=== PATIENT | female | born 1985 | race Caucasian/White ===

== ENCOUNTER 2017-02-11 17:19 | Emergency (ER) | payer OTHER ==
[~2017-02-11] VITALS: Ht 172.7 cm; Wt 96.8 kg
[~2017-02-11 17:19] MED LIST: ATIVAN0.5 MG PO; CIPRO500 MG OR; DEPO-PROVER150 MG/ML IM; FLEXERIL PO; LEVAQUIN500 MG OR; NAPROSYN500 MG OR; PRENATA4 OR; PROVENTIL HFA IN; TRAMADOL HCL50 MG PO; ULTRAM50 M1 PO; no home meds
[2017-02-11] MEDS ORDERED: PERCOCET 5/325M1 TAB PO (19:23)
[2017-02-11 19:33] VITALS: BP 126/80
== END 2017-02-11 19:33 | disposition home or self-care (01) | DRG 605 ==
LOC: ED 17:19
DX: S30.0XXA Contusion of lower back and pelvis, initial encounter (principal); S63.91XA Sprain of unspecified part of right wrist and hand, initial encounter; S39.012A Strain of muscle, fascia and tendon of lower back, initial encounter; W18.39XA Other fall on same level, initial encounter; Y92.003 Bedroom of unspecified non-institutional (private) residence as the place of occurrence of the external cause

== ENCOUNTER 2017-03-20 11:49 | Emergency (ER) | payer OTHER ==
[~2017-03-20] VITALS: Ht 172.7 cm; Wt 100.0 kg
[~2017-03-20 11:49] MED LIST changes: +PERCOCET 5/325M1 TAB PO
[2017-03-20 12:29] LABS: HEMATOCRIT 40.2 % (37.0-47.0); HEMOGLOBIN 13.3 g/dl (12.0-16.0); IMMATURE GRANULOCYTES 0.3 % (0.0-1.0); MEAN CELL VOLUME 80.7 fL CALC (80.0-100.0); MEAN CORPUSCULAR HGB 26.7 pG CALC (26.0-32.0); MEAN CORPUSCULAR HGB CONC 33.1 g/L CALC (32.0-36.0); NEUT# 5.4 thou/uL (2.00-7.15); RED BLOOD COUNT 4.98 mill/uL (4.20-5.60); RED CELL DISTRI WIDTH 16.4 % (11.5-15.5)
[2017-03-20 12:30] LABS: URINE BILIRUBIN - DIPSTICK NEGATIVE (NEGATIVE); URINE BLOOD DIPSTICK NEGATIVE (NEGATIVE); URINE CLARITY CLEAR; URINE COLOR YELLOW; URINE GLUCOSE - DIPSTICK NEGATIVE (NEGATIVE); URINE KETONE NEGATIVE (NEGATIVE); URINE LEUK ESTERASE NEGATIVE (NEGATIVE); URINE NITRITE - DIPSTICK NEGATIVE (Negative); URINE PH 6.5 (4.5-8.0); URINE PROTEIN - DIPSTICK NEGATIVE (NEG-TRACE); URINE SPECIFIC GRAVITY 1.015; URINE UROBILINOGEN - DIPSTICK 0.2 E.U./dL (0.2)
[2017-03-20 12:42] LABS: ALBUMIN 4.4 g/dL (3.2-5.0); ALKALINE PHOSPHATASE 89 u/l (38-126); ANION GAP 16 (6-22 (CALC)); BILIRUBIN, TOTAL 0.5 mg/dL (0.0-1.4); BUN 10 mg/dL (7-17); BUN/CREATININE RATIO 16 (12-20 (CALC)); CALCIUM 9.5 mg/dL (8.4-10.2); CARBON DIOXIDE 24 mmol/l (22-30); CHLORIDE 106 mmol/l (95-108); CREATININE 0.6 mg/dL (0.5-1.0); GFR > 60 ML/MIN (>=60 (CALC)); GFR FOR AFR.AMER. > 60 ML/MIN (>=60 (CALC)); GLUCOSE 114 mg/dL (65-105); SGOT/AST 23 u/l (14-36); SGPT/ALT 36 u/l (9-52); SODIUM 142 mmol/l (137-146); TOTAL PROTEIN 7.5 g/dL (6.3-8.2)
[2017-03-20 12:59] LABS: BETA-HCG, QUANT(RESULT NUMBER) <2 mIU/mL
[2017-03-20 15:03] VITALS: BP 124/83
== END 2017-03-20 15:03 | disposition home or self-care (01) | DRG 392 ==
LOC: ED 11:49
PROVIDERS: Emergency Medicine
DX: R10.9 Unspecified abdominal pain (principal)

== ENCOUNTER 2018-08-07 18:55 | Emergency (ER) | payer SELFPAY ==
[~2018-08-07] VITALS: Ht 172.7 cm; Wt 102.0 kg
[2018-08-07 20:00] VITALS: BP 148/96
== END 2018-08-07 20:00 | disposition home or self-care (01) | DRG 556 ==
LOC: ED 18:55
DX: M25.561 Pain in right knee (principal); F17.210 Nicotine dependence, cigarettes, uncomplicated

== ENCOUNTER 2019-02-23 08:29 | Emergency (ER) | payer OTHER ==
[~2019-02-23] VITALS: Ht 172.7 cm; Wt 105.0 kg
[2019-02-23 09:19] LABS: HEMATOCRIT 41.5 % (37.0-47.0); HEMOGLOBIN 13.7 g/dl (12.0-16.0); IMMATURE GRANULOCYTES 0.5 % (0.0-5.0); MEAN CORPUSCULAR HGB 28.4 pG CALC (26.0-32.0); NEUT# 5.33 thou/uL (2.00-7.15); RED BLOOD COUNT 4.82 mill/uL (4.20-5.60); RED CELL DISTRI WIDTH 13.3 % (11.5-15.5)
[2019-02-23 09:21] LABS: URINE BILIRUBIN - DIPSTICK NEGATIVE (NEGATIVE); URINE BLOOD DIPSTICK NEGATIVE (NEGATIVE); URINE COLOR YELLOW; URINE GLUCOSE - DIPSTICK NEGATIVE (NEGATIVE); URINE KETONE NEGATIVE (NEGATIVE); URINE LEUK ESTERASE NEGATIVE (NEGATIVE); URINE PROTEIN - DIPSTICK NEGATIVE (NEG-TRACE); URINE SPECIFIC GRAVITY 1.015; URINE UROBILINOGEN - DIPSTICK 0.2 E.U./dL (0.2)
[2019-02-23 09:21] LABS: MEAN CELL VOLUME 86.1 fL CALC (80.0-100.0)
[2019-02-23 09:22] LABS: URINE NITRITE - DIPSTICK POSITIVE (Negative)
[2019-02-23 09:31] LABS: URINE BACTERIA MODERATE hpf; URINE SQUAMOUS EPITHELIAL CELL MANY EPI/hpf (0-FEW); URINE WBC 0-2 WBC/hpf (0-5)
[2019-02-23 09:47] LABS: ALBUMIN 3.9 g/dL (3.2-5.0); ALKALINE PHOSPHATASE 92 u/l (38-126); ANION GAP 13 (6-22 (CALC)); BILIRUBIN, TOTAL 0.4 mg/dL (0.0-1.4); BUN 12 mg/dL (7-17); BUN/CREATININE RATIO 20 (12-20 (CALC)); CARBON DIOXIDE 25 mmol/l (22-30); CHLORIDE 105 mmol/l (95-108); CREATININE 0.6 mg/dL (0.5-1.0); GFR > 60 ML/MIN (>=60 (CALC)); GFR FOR AFR.AMER. > 60 ML/MIN (>=60 (CALC)); LIPASE 52 u/l (23-300); POTASSIUM 3.9 mmol/l (3.5-5.1); SGOT/AST 19 u/l (14-36); SODIUM 139 mmol/l (137-146)
[2019-02-23] MEDS ORDERED: CEPHALEXIN500 M1 PO (10:34)
[2019-02-23] MEDS ORDERED: ATIVAN1 MG PO (10:35)
[2019-02-23 10:40] VITALS: BP 139/74
== END 2019-02-23 10:40 | disposition home or self-care (01) ==
LOC: ED 08:29
PROVIDERS: Family Medicine
DX: S39.011A Strain of muscle, fascia and tendon of abdomen, initial encounter (principal); N39.0 Urinary tract infection, site not specified; F17.210 Nicotine dependence, cigarettes, uncomplicated; X58.XXXA Exposure to other specified factors, initial encounter